=== PATIENT | female | born 1955 | race Caucasian/White ===

== ENCOUNTER 2020-11-30 07:03 | Day surgery (SDC) | payer MEDICARE, OTHER ==
[~2020-11-30 07:03] MED LIST: Lactated Ringers 1,000 ML IV SCH; Lidocaine 1%/Sod Bicarbonate in NS 8.4% 1 ML Syringe IDERM PRN; Sodium Chloride 0.9% 10 ML Syringe FLUSH PRN
--- NOTE | 2020-11-30 07:26 | PCM.PREANE ---
Preanesthetic Assessment - Procedure Proposed Procedure: EGD/Colonoscopy - Anesthesia/Transfusion/Family Hx Anesthesia History: Prior Anesthesia Without Reaction Family History of Anesthesia Reaction: No Transfusion History: No Prior Transfusion(s) - Review of Systems General: No Symptoms Pulmonary: No Symptoms Cardiovascular: Dyspnea on Exertion Gastrointestinal: Nausea Neurological: Numbness (feet) Other: Reports: Easy Bleeding, Easy Bruising, Diabetes (gluco check this am is 87), Thyroid Problems (hypothyroid) - Physical Assessment NPO Status Date: 11/29/20 NPO Status Time: 00:00 Height: 1.73 m Weight: 80.7 kg ASA Class: 3 Mental Status: Alert & Oriented x3 Airway Class: Mallampati = 2 Dentition: Reports: [place](s) Thyro-Mental Finger Breadths: 2 Mouth Opening Finger Breadths: 2 ROM/Head Extension: Full Lungs: Clear to Auscultation, Normal Respiratory Effort Cardiovascular: Regular Rate, Regular Rhythm - Allergies Allergies/Adverse Reactions: Allergies Allergy/AdvReac Type Severity Reaction Status Date / Time No Known Allergies Allergy Verified 11/29/20 14:50 - Blood Blood Available: No Product(s) Available: None - Anesthesia Plan Pre-Op Medication Ordered: Beta Shantelle Beta Shantelle: Propranolol Med Last Dose Date: 11/30/20 Med Last Dose Time: 04:00 - Acknowledgements Anesthesia Type Planned: MAC Pt an Appropriate Candidate for the Planned Anesthesia: Yes Alternatives and Risks of Anesthesia Discussed w Pt/Guardian: Yes Pt/Guardian Understands and Agrees with Anesthesia Plan: Yes PreAnesthesia Questionnaire HEENT History: Reports: None Cardiovascular History: Reports: High Cholesterol, Hypertension, Other (See Below) Other Cardiovascular History: LEFT CAROTID ARTERY STENOSIS Respiratory History: Reports: Sleep Apnea Gastrointestinal History: Reports: Colon Polyp, Gastritis, Other (See Below) Other Gastrointestinal History: DUODENITITS Genitourinary History: Reports: Other (See Below) Other Genitourinary History: macrocytosis ANODIC TREATER History: Reports: None Musculoskeletal History: Reports: Other (See Below) Other Musculoskeletal History: myofascial pain, knee joint cyst, myalgia and myositis, knee joint cyst, back pain, rib fracture Neurological History: Reports: Other (See Below) Other Neuro History: lumbar stenosis with neurogenic claudication, cerviclagia, lumbar degenerative disc disease, spine fusion, c5c6 fusion, laminectomy/discectomy Psychiatric History: Reports: Depression Endocrine/Metabolic History: Reports: Diabetes, Type II, Hypothyroidism, Vitamin D Deficiency, Other (See Below) Other Endocrine/Metabolic History: adrenal insufficiency, low vitamin b 12, diabetes insipidus, cushings disease Hematologic History: Reports: Other (See Below) Other Hematologic History: leukocytosis Immunologic History: Reports: None Oncologic (Cancer) History: Reports: None Dermatologic History: Reports: None - Infectious Disease History Infectious Disease History: Reports: None - Past Surgical History Head Surgeries/Procedures: Reports: None HEENT Surgical History: Reports: Myringotomy w Tube(s) Cardiovascular Surgical History: Reports: None Respiratory Surgical History: Reports: None GI Surgical History: Reports: Appendectomy, Colonoscopy, EGD Female Surgical History: Reports: D&C Male Surgical History: Reports: None Endocrine Surgical History: Reports: Adrenal Gland, Pituitary Tumor Resection Other Endocrine Surgeries/Procedures: bilateral adrenalectomy Neurological Surgical History: Reports: None Musculoskeletal Surgical History: Reports: Other (See Below) Other Musculoskeletal Surgeries/Procedures:: right knee arthroscopy, right elbow surgery, right tarsal tunnel surgery, right shoulder reverse replacement, right shoulder arthroscopy Oncologic Surgical History: Reports: None Dermatological Surgical History: Reports: None - SUBSTANCE USE Tobacco Use Status *Q: Never Tobacco User Tobacco Use Within Last Twelve Months: No Second Hand Smoke Exposure: No Days Per Week of Alcohol Use: 1 Number of Drinks Per Day: 1 Total Drinks Per Week: 1 Recreational Drug Use History: No - HOME MEDS Home Medications: Home Meds Desmopressin Acetate [Ddavp] 0.005 mg PO BID 04/21/19 [History] Fludrocortisone [Florinef] 0.1 mg PO QAM 04/21/19 [History] Fludrocortisone [Florinef] 0.2 mg PO QPM 04/21/19 [History] Fluticasone Propionate [Flonase] 1 dose NASBOTH QAM PRN 04/21/19 [History] Hydrocodone/Acetaminophen [[place] 10-325 Tablet] 1 tab PO Q6H PRN 04/21/19 [History] Insulin Glargine,Hum.Rec.Anlog [Toujsaon Solostar] 46 units SQ DAILY 04/21/19 [History] Levothyroxine [Synthroid] 50 mcg PO MOTUWETHFR 04/21/19 [History] Levothyroxine [Synthroid] 75 mcg PO SUSA 04/21/19 [History] Liraglutide [Victoza] 0.6 mg SQ DAILY 04/21/19 [History] Mometasone Furoate [Elocon] 1 dose TOP DAILY 04/21/19 [History] Pantoprazole Sodium [Protonix] 40 mg PO QAM 04/21/19 [History] Propranolol HCl [Propranolol HCl ER] 120 mg PO DAILY 04/21/19 [History] Quinapril HCl [Accupril] 5 mg PO DAILY 04/21/19 [History] Sertraline [Zoloft] 100 mg PO DAILY 04/21/19 [History] Ubidecarenone [Coq-10] 200 mg PO DAILY 04/21/19 [History] dilTIAZem HCL [Cardizem Cd] 240 mg PO DAILY 04/21/19 [History] guaiFENesin [Mucinex] 1,200 mg PO DAILY PRN 04/21/19 [History] metFORMIN [Glucophage] 500 mg PO DAILY 04/21/19 [History] predniSONE [Prednisone] 2.5 mg PO QPM 04/21/19 [History] predniSONE [Prednisone] 5 mg PO QAM 04/21/19 [History] Azelastine [Astelin Nasal Soln] 1 dose NASBOTH ASDIRECTED PRN 11/29/20 [History] Cyclobenzaprine [Flexeril] 10 mg PO BEDTIME PRN 11/29/20 [History] Folic Acid 0.5 mg PO DAILY 11/29/20 [History] Montelukast [Singulair] 10 mg PO DAILY 11/29/20 [History] Pregabalin [Lyrica] 200 mg PO DAILY 11/29/20 [History] Spironolactone [Aldactone] 12.5 mg PO DAILY 11/29/20 [History] atorvaSTATin [Lipitor] 10 mg PO DAILY 11/29/20 [History] - CURRENT (IN HOUSE) MEDS Current Meds: Current Medications Lactated Ringer's (Ringers, Lactated) 1,000 mls @ 125 mls/hr IV ASDIRECTED [place] Stop: 11/30/20 23:00 Lidocaine/Sodium Bicarbonate (Lidocaine 1%/Sod Bicarbonate In Ns 8.4% 1 Ml Syringe) 0.25 ml IDERM ONETIME PRN PRN Reason: Prior to IV Start Stop: 11/30/20 18:00 Sodium Chloride (Sodium Chloride 0.9% 10 Ml Syringe) 10 ml FLUSH ASDIRECTED PRN PRN Reason: Keep Vein Open Stop: 11/30/20 18:00
[2020-11-30] MEDS ORDERED: Propofol 200 MG/20 ML SDV ONE ×3 (07:40→08:37)
[2020-11-30] MEDS ORDERED: Midazolam 1 MG/ML 2 ML SDV ONE (07:40)
[2020-11-30] MEDS ORDERED: Lidocaine 1% 4 ML ONE (07:40)
[2020-11-30] MEDS ORDERED: fentaNYL 100 MCG/2 ML SDV ONE (07:40)
[2020-11-30] MEDS ORDERED: Lactated Ringers 1,000 ML ONE (08:52)
--- NOTE | 2020-11-30 09:29 | PCM.OPNOTE ---
- General Post-Op/Procedure Note Date of Surgery/Procedure: 11/30/20 Operative Procedure(s): EGD and colonoscopy Findings: 1. Esophagitis 2. Irregular Z-line 3. Polypoid gastric mucosa 4. Gastritis 5. Duodenitis 6. Duodenal polyps 7. Transverse colon polyp 8. Descending colon polyp x2 9. Sigmoid colon polyp x3 10. Rectal polyp x2 Pre Op Diagnosis: Nausea, epigastric pain, history of adenomatous colon polyps Post-Op Diagnosis: same Anesthesia Technique: MAC Primary Surgeon: Nerissa Ley Anesthesia Provider: Leandro Bellamy Pathology: 1. Irregular Z-line biopsies 2. Polypoid gastric mucosa biopsy 3. Gastric antrum biopsies 4. Duodenal polyps x4 5. Transverse colon polyp 6. Descending colon polyp x2 7. Sigmoid colon polyp x3 8. Rectal polyp x2 Fluid Replacement, Intraop: 1,200 Output, Urine Amount: 0 EBL in mLs: 0 Complications: none apparent Condition: Good
--- NOTE | 2020-11-30 09:31 | PCM48HPAN ---
Post Anesthesia Note - EVALUATION WITHIN 48HRS OF ANESTHETIC Vital Signs in Normal Range: Yes Patient Participated in Evaluation: Yes Respiratory Function Stable: Yes Airway Patent: Yes Cardiovascular Function Stable: Yes Hydration Status Stable: Yes Pain Control Satisfactory: Yes Nausea and Vomiting Control Satisfactory: Yes Mental Status Recovered: Yes Vital Signs: Last Vital Signs Temp 36.3 C 11/30/20 07:10 Pulse 86 11/30/20 07:10 Resp 16 11/30/20 07:10 BP 152/91 H 11/30/20 07:10 Pulse Ox 93 L 11/30/20 07:10 - COMMENTS/OBSERVATIONS Free Text/Narrative:: NO ANESTHESIA COMPLICATIONS NOTED
--- NOTE | 2020-11-30 09:39 | PCM.PRNOTE ---
- Free Text/Narrative Note: Operative Report Date of Procedure: November 30, 2020 Pre Op Diagnosis: Nausea, epigastric pain, history of adenomatous colon polyps Post-Op Diagnosis: same Operative Procedures: 1. EGD with biopsy 2. Colonoscopy to the cecum Primary Surgeon: Nerissa Ley MD Anesthesia Provider: Leandro Bellamy CRNA Anesthesia Technique: MAC IV Fluid Replacement, Intraop: 1200cc crystalloid Output, Urine Amount: 0cc EBL in mLs: 0cc Findings: 1. Esophagitis 2. Irregular Z-line 3. Polypoid gastric mucosa 4. Gastritis 5. Duodenitis 6. Duodenal polyps 7. Transverse colon polyp 8. Descending colon polyp x2 9. Sigmoid colon polyp x3 10. Rectal polyp x2 Specimens: 1. Irregular Z-line biopsies 2. Polypoid gastric mucosa biopsy 3. Gastric antrum biopsies 4. Duodenal polyps x5 5. Transverse colon polyp 6. Descending colon polyp x2 7. Sigmoid colon polyp x3 8. Rectal polyp x2 Drain/Tubes: None Indication: The patient is a 65-year-old lady who presented to the clinic for repeat EGD and colonoscopy. The patient reported symptoms of nausea and epigastric pain with a history of esophageal candidiasis and colon polyps. The patient was consented for an EGD and colonoscopy. Risks of bleeding, and perforation were discussed, and the patient agreed to the risks and wished to proceed. Description of the procedure: The patient was taken back to the endoscopy suite, and placed in the left lateral decubitus position. A bite block was placed. The patient was sedated with MAC anesthesia. The Olympus video endoscope was inserted into the oropharynx and guided under direct vision into the esophagus, stomach, and duodenum. The duodenal bulb and second portion of the duodenum were remarkable for polyps in the duodenal bulb and second portion of the duodenum. There were a cluster of 4 flat polyps in the second portion of the duodenum measuring 2-4mm. These were removed using a jumbo cold biopsy forceps.A 6mm semipedunculated polyp was seen in the duodenal bulb and removed with a jumbo cold biopsy forceps. The gastric antrum was inspected and jumbo cold biopsy forceps were used to take tissue samples for H. pylori. The scope was withdrawn to the stomach and retroflexed. There was no increased fluid, food or secretions in the upper gastrointestinal tract. There was diffuse polypoid mucosa in the body of the stomach and a biopsy was taken from the lesser curvature using the jumbo cold biopsy forceps. No erosions or ulcers were noted. The scope was withdrawn to the esophagus. A this point an irregular Z-line was noted and biopsies were taken in four quadrants using a jumbo cold biopsy forceps. There was fibrinous exudate noted in the distal esophagus consistent with healing esophagitis. The endoscope was then withdrawn Next, anorectal examination was performed. No lesions, masses or hemorrhoids were noted externally or on palpation. The scope was placed into the rectum and advanced to cecum. Upon reaching the cecum, and the patients cecum was entered. There was moderate tortuosity of the colon requiring application of external abdominal pressure. The ileocecal valve was well visualized and the appendiceal orifice identified. At this point, the scope was slowly withdrawn, paying attention to the mucosa. The patient had good bowel prep, 85-90% of the mucosa was visible after some washing and suctioning. The mucosa in the ascending colon and over the ileocecal valve was very friable, and started to bleed with the insufflation. A 4mm flat transverse polyp was seen and removed using a jumbo cold biopsy forceps. Two flat 3-4mm polyps were seen in the descending colon and three flat 2-4mm polyps seen in the sigmoid colon, these were removed using a jumbo cold biopsy forceps. A few scattered diverticula were seen in the descending and sigmoid colon. Two flat polyps in the rectum measuring 2-3mm were removed using a jumbo cold biopsy forceps. In the rectum, scope was retroflexed and some hemorrhoidal tissue was noted. The scope was placed back in the lumen and excess air was aspirated. The scope was removed. The patient tolerated the procedure very well. Complications: None apparent Condition: The patient was transported to PACU in stable condition. Nerissa Ley MD General Surgery
== END 2020-11-30 10:14 | disposition home or self-care (01) ==
LOC: JD.SDS 07:03
PROVIDERS: ATTEND Surgery
DX: Z12.11 Encounter for screening for malignant neoplasm of colon (principal); D12.4 Benign neoplasm of descending colon; K31.7 Polyp of stomach and duodenum; K62.1 Rectal polyp; D12.3 Benign neoplasm of transverse colon; K29.50 Unspecified chronic gastritis without bleeding; K21.00 Gastro-esophageal reflux disease with esophagitis, without bleeding; K31.89 Other diseases of stomach and duodenum; K22.8 Other specified diseases of esophagus; K64.9 Unspecified hemorrhoids; K57.30 Diverticulosis of large intestine without perforation or abscess without bleeding; E11.9 Type 2 diabetes mellitus without complications; I10 Essential (primary) hypertension; E78.5 Hyperlipidemia, unspecified; E03.9 Hypothyroidism, unspecified; G47.30 Sleep apnea, unspecified; Z79.52 Long term (current) use of systemic steroids; Z79.899 Other long term (current) drug therapy; Z86.010 Personal history of colon polyps; Z98.890 Other specified postprocedural states
CPT/HCPCS: 43239; 45380; 82962; 88305; 88312; J2250; J2704; J7120; 00813; J3010